=== PATIENT | female | born 1935 | race Hispanic/Latino ===

== ENCOUNTER 2020-12-17 10:46 | Emergency (ER) | payer OTHER ==
--- OUTSIDE RECORDS SUMMARY | 2020-12-17 10:50 | XMS REPORT | Continuity of Care Document ---
:1935 Author Organization [facility] t Address [address] [place] [address] Care Team Providers Name Role Phone Unavailable Unavailable Unavailable Problems This patient has no known problems. Allergies, Adverse Reactions, Alerts Allergy Allergy Status Severity Reaction(s) Onset Inactive Treating Comm ents Source Name Type Date Date Clinician Sulfa Adverse Active hives [facility] Medications Ordered Filled Start Stop Current Ordering Indication Dosage Frequency Signature Comments Components Source Medication Medication Date Date Medication? Clinician (SIG) Name Name Bisi Mathews Yes Jenniffer TAKE [address] [facility] Procedures This patient has no known procedures. Encounters Start End Encounter Admission Attending Care Care Encounter Source Date/Time Date/Time Type Type Clinicians Facility Department ID 2020-11-26 2020-11-26 Outpatient [facility] [id number] [facility] 2020-11-26 2020-11-26 Outpatient [facility] [id number] [facility] 2020-11-05 2020-11-05 [facility] [id number] [facility] 2020-09-06 2020-09-06 Outpatient [facility] [id number] [facility] 2020-09-05 2020-09-05 [facility] [id number] [facility] 2020-07-31 2020-07-31 [facility] [id number] [facility] 2020-03-15 2020-03-15 [facility] [id number] [facility] 2020-02-27 2020-02-27 [facility] [id number] [facility] 2020-01-19 2020-01-19 [facility] [id number] [facility] 14:10[facility]00 14:10:00 [facility] [employer] [facility] 2020-01-19 2020-01-19 [facility] [id number] [facility] 11:49:00 11:49:00 [facility] [employer] [facility] 2019-12-30 2019-12-30 [facility] [id number] 10:00[facility]00 10:00:00 [facility] [employer] [facility] Out[facility] Clin[facility] 2019-11-22 2019-11-22 [facility] [id number] [address] 09:40[facility]00 09:40:00 [facility] [employer] [facility] Medicine l Medicine Outpat[facility] Clinics 2019-09-06 2019-09-06 [facility] [id number] 15:49:00 15:49:00 t [facility] [employer] [facility] Medicine l Medicine Outpati ent Clinics 2019-08-23 2019-08-23 [facility] [id number] 10:20:00 10:20:00 [facility] [employer] [facility] Medicine l Medicine Outpati ent Clinics 2019-07-04 2019-07-04 Outpatient Nesha Orozco [id number] 14:00:00 14:00:00 [facility] ent Clinics 2019-05-24 2019-05-24 Outpatient Nesha Orozco [id number] [facility] 09:40:00 09:40:00 [facility] ent Clinics Results This patient has no known results.
--- NOTE | 2020-12-17 12:13 | RAD REPORT ---
EXAM DESCRIPTION: CT - Head C Spine Mpr Wo Con - 12/17/2020 11:32 am CLINICAL HISTORY: Head and neck injury status post fall. Head and neck pain COMPARISON: [address] TECHNIQUE: Computed axial tomography of the head and cervical spine was obtained. Sagittal and coronal reconstruction was performed. All CT scans are performed using dose optimization technique as appropriate and may include automated exposure control or mA/KV adjustment according to patient size. FINDINGS: Left scalp hematoma. No underlying skull fracture noted. An intracranial bleed is not seen. The ventricles are normal in caliber. An extra-axial fluid collect ion is not noted.Fluid within the visualized sinuses and mastoids is not seen A cervical fracture is not visualized. No dislocation is noted. Loss of the normal lordosis of the ce rvical spine. Slight anterior subluxation C4 on C5 and C5 on C6 IMPRESSION: No acute intracranial abnormality is seen. A cervical fracture is not visualized. If the patient continues to have symptoms to suggest intracra nial /spinal cord pathology then MRI would be recommended
--- NOTE | 2020-12-17 12:17 | RAD REPORT ---
EXAM DESCRIPTION: CTThoracic Spine Wo Cont12/17/2020 11:40 am CLINICAL HISTORY: Back injury with Back pain status post fall COMPARISON: None TECHNIQUE: Computed axial tomography of thoracic spine was obtained with coronal and sagittal recons truction. All CT scans are performed using dose optimization technique as appropriate and may include automated exposure control or mA/KV adjustment according to patient size. FINDINGS: No fracture is seen. No dislocation is noted. No high-grade stenosis IMPRESSION: Negative for a thoracic fracture If the patient has clinical symptoms to suggest spinal cord/spinal canal pathology then MRI would be recommended.
--- NOTE | 2020-12-17 12:20 | RAD REPORT ---
EXAM DESCRIPTION: RAD - Hip Right 2 View - 12/17/2020 12:06 pm CLINICAL HISTORY: Right hip pain FINDINGS: No fracture or dislocation is seen. Bones are osteoporotic. If patient continues have symptoms to suggest an occult fracture then MRI or CT would be recommended
--- NOTE | 2020-12-17 12:20 | RAD REPORT ---
EXAM DESCRIPTION: RAD - Pelvis - 12/17/2020 12:06 pm CLINICAL HISTORY: Pelvic pain status post injury FINDINGS: No fracture or dislocation is seen. Bones are osteoporotic. If the patient continues to have symptoms to suggest an occult fracture then MRI or CT would be recom mended
--- NOTE | 2020-12-17 12:21 | RAD REPORT ---
EXAM DESCRIPTION: RAD - Knee Right 2 View - 12/17/2020 12:06 pm CLINICAL HISTORY: Left knee pain FINDINGS: No fracture or dislocation is seen. Bones are osteoporotic. A small joint effusion If the patient continues have symptoms to suggest an occult fracture, ligamentous or meniscal injury then an MRI would be recommended.
--- NOTE | 2020-12-17 12:22 | RAD REPORT ---
EXAM DESCRIPTION: RAD - Knee Left 2 View - 12/17/2020 12:06 pm CLINICAL HISTORY: Left knee pain status post injury FINDINGS: No fracture or dislocation is seen. Bones are osteoporotic. Chondrocalcinosis is present
--- NOTE | 2020-12-17 12:24 | RAD REPORT ---
EXAM DESCRIPTION: RAD -Hand Left 3 View - 12/17/2020 12:08 pm CLINICAL HISTORY: Left hand pain status post injury FINDINGS: Comminuted moderately displaced spiral fracture fifth metacarpal. No dislocation seen
--- NOTE | 2020-12-17 13:07 | ER ---
Nurse's Notes [facility] Name: Linda Clinton Age: 84 yrs Sex: Female : 1935 Arrival Date: 12/17/2020 Time: 10:50 Bed Treatment Private MD: Diagnosis: Displaced fracture of shaft of fifth metacarpal bone, left hand;Unspecified superficial injury of other part of head, initial encounter;Contusion of left knee;Contusion of right knee Presentation: 12/17 11:17 Chief complaint: Patient states: tripped and fell to ground, hit head on brick column, iw c/o pain to right knee and hip and left hand , no LOC, not on blood thinners besides aspirin. 11:17 Acuity: GURPREET 4 iw - Family history:: not pertinent. - Hospitalizations: : No recent hospitalization is reported. Vital Signs: 11:23 BP 185 / 78; Pulse 82; Resp 18; Temp 97.6(TE); Pulse Ox 95% on R/A; Weight 90.72 kg; mh5 Height 5 ft. 2 in. (157.48 cm); Pain 4/10; 11:23 Body Mass Index 36.58 (90.72 kg, 157.48 cm) mh5 ED Course: 10:50 Patient arrived in ED. ds1 11:09 Miri Agustin, RN is Primary Nurse. iw 11:09 David Copeland MD is Attending Physician. rn 11:18 Triage completed. iw 11:24 Patient has correct armband on for positive identification. Bed in low position. Call mh5 light in reach. Side rails up X2. Adult w/ patient. Warm blanket given. Pillow given. Pulse ox on. NIBP on. 11:32 CT Head C Spine In Process Unspecified. EDMS 11:40 Thoracic Spine Wo Cont In Process Unspecified. EDMS 12:06 XRAY Hand LEFT 3 View In Process Unspecified. EDMS 12:06 XRAY Knee LEFT 2 view In Process Unspecified. EDMS 12:06 XRAY Knee RIGHT 2 view In Process Unspecified. EDMS 12:06 XRAY Hip RIGHT 2 view In Process Unspecified. EDMS 12:06 XRAY Pelvis In Process Unspecified. EDMS 13:06 Cj Baker MD is Referral Physician. rn Administered Medications: No medications were administered Outcome: 13:07 Discharge ordered by MD. pappas 13:45 Patient left the ED. jr8 Signatures: Dispatcher [employer] EDMS Mary Lou Wilkins ds1 Miri Agustin RN RN iw Nieto, Roman, MD MD rn Roszak, Josh, PA PA jr8 Maegan Kirkland mh5
--- NOTE | 2020-12-17 13:08 | EDPHYS ---
Physician Documentation [facility] Name: Linda Clinton Age: 84 yrs Sex: Female : 1935 Arrival Date: 12/17/2020 Time: 10:50 Bed Treatment Private MD: ED Physician David Copeland HPI: 12/17 11:37 This 84 yrs old Female presents to ER via Unassigned with complaints of Fall rn Injury. 11:37 Details of fall: The patient fell from an upright position, while walking. Onset: The rn symptoms/episode began/occurred this morning, at 07:00. Associated injuries: The patient sustained injury to the head, neck injury, Both knees, left hand. Severity of symptoms: At their worst the symptoms were mild, in the emergency department the symptoms are unchanged. The patient has not experienced similar symptoms in the past. The patient has not recently seen a physician. Reports in garden, this morning around 0700, tripped over a water hose, landed on left hand and struck left forehead on brick wall. Not on any blood thinners. No LOC. No vomiting or focal neurological deficit. Reports pain to both knees but ambulatory, does not feel like broke them.. - Family history:: not pertinent. - Hospitalizations: : No recent hospitalization is reported. ROS: 11:37 Constitutional: Negative for fever, chills, and weight loss, Eyes: Negative for injury, rn pain, redness, and discharge, ENT: Negative for injury, pain, and discharge, Neck: Positive for neck pain Cardiovascular: Negative for chest pain, palpitations, and edema, Respiratory: Negative for shortness of breath, cough, wheezing, and pleuritic chest pain, Abdomen/GI: Negative for abdominal pain, nausea, vomiting, diarrhea, and constipation, Back: Negative for injury and pain, : Negative for injury, bleeding, discharge, and swelling, MS/Extremity: Positive for bilateral knee pain, and left hand pain. Skin: Negative for injury, rash, and discoloration, Neuro: Negative for weakness, numbness, tingling, and seizure. 11:37 All other systems are negative. Exam: 11:37 Constitutional: This is a well developed, well nourished patient who is awake, alert, rn and in no acute distress. Head/Face: Normocephalic, 3 cm abrasion and superficial hematoma left forehead along hairline. No laceration or depression. Eyes: Pupils equal round and reactive to light, extra-ocular motions intact. Lids and lashes normal. Conjunctiva and sclera are non-icteric and not injected. Cornea within normal limits. Periorbital areas with no swelling, redness, or edema. Neck: No cervical midline tenderness or step-off. Chest/axilla: Normal chest wall appearance and motion. Nontender with no deformity. No lesions are appreciated. No crepitus Cardiovascular: Regular rate and rhythm. No pulse deficits. Respiratory: No increased work of breathing, no retractions or nasal flaring. Abdomen/GI: Soft, non-tender Back: No spinal tenderness. No costovertebral tenderness. Full range of motion. Skin: Warm, dry MS/ Extremity: Pulses equal, no cyanosis. Neurovascular intact. Full, normal range of motion. Equal circumference. Full range of motion bilateral knees with small ecchymosis right prepatellar region. No gross deformity. Left hand with tenderness along the fifth metacarpal with very mild scissoring evident when making a fist. Neuro: Awake and alert, GCS 15, oriented to person, place, time, and situation. Cranial nerves II-XII grossly intact. Motor strength 5/5 in all extremities. Sensory grossly intact. Cerebellar exam normal. Vital Signs: 11:23 BP 185 / 78; Pulse 82; Resp 18; Temp 97.6(TE); Pulse Ox 95% on R/A; Weight 90.72 kg; mh5 Height 5 ft. 2 in. (157.48 cm); Pain 4/10; 11:23 Body Mass Index 36.58 (90.72 kg, 157.48 cm) 5 Procedures: 13:03 Splinting: Splint applied to left hand. Reduction: of the 5th MC of left hand, using rn traction, manipulation, Immobilized with ulnar gutter splint. Patient tolerated well. Decreased scissoring after reduction. 13:03 Splinting: using Orthoglass ulnar gutter splint. applied by myself. Examined by , rn post splint application: neurovascular intact, 2+ distal pulses palpable, brisk capillary refill noted, Patient tolerated well. MDM: 11:09 Patient medically screened. rn 13:05 Differential diagnosis: abrasion, closed head injury, contusion, fracture, sprain, rn strain. Data reviewed: vital signs, nurses notes, radiologic studies, CT scan, plain films, and as a result, I will discharge patient. Counseling: I had a detailed discussion with the patient and/or guardian regarding: the historical points, exam findings, and any diagnostic results supporting the discharge/admit diagnosis, radiology results, the need for outpatient follow up, to return to the emergency department if symptoms worsen or persist or if there are any questions or concerns that arise at home. Response to treatment: the patient's symptoms have mildly improved after treatment, and as a result, I will discharge patient. Special discussion: I discussed with the patient/guardian in detail that at this point there is no indication for admission to the hospital. It is understood, however, that if the symptoms persist or worsen the patient needs to return immediately for re-evaluation. Based on the history and exam findings, there is no indication for further emergent testing or inpatient evaluation. I discussed with the patient/guardian the need to see the hand specialist for further evaluation of the symptoms. ED course: CT head/C-spine/T-spine negative for acute abnormality. X-ray pelvis/right knee/left knee/right hip negative. Positive spiral fracture left fifth MC. Now reduced and splinted with improvement. Tetanus updated. Will DC home with hand follow-up given high likelihood of need of surgery. 12/17 11:17 Order name: CT Head C Spine; Complete Time: 12:24 rn 12/17 11:17 Order name: XRAY Hand LEFT 3 View; Complete Time: 12:30 rn 12/17 11:17 Order name: XRAY Knee LEFT 2 view; Complete Time: 12:24 rn 12/17 11:17 Order name: XRAY Knee RIGHT 2 view; Complete Time: 12:24 rn 12/17 11:17 Order name: XRAY Hip RIGHT 2 view; Complete Time: 12:24 rn 12/17 11:17 Order name: XRAY Pelvis; Complete Time: 12:24 rn 12/17 11:37 Order name: Thoracic Spine Wo Cont; Complete Time: 12:24 EDMS 12/17 12:30 Order name: Splint rn 12/17 13:17 Order name: Sling rn Administered Medications: No medications were administered Disposition Summary: 12/17/20 13:07 Discharge Ordered Location: Home rn Problem: new rn Symptoms: have improved rn Condition: Stable rn Diagnosis - Displaced fracture of shaft of fifth metacarpal bone, left hand rn - Unspecified superficial injury of other part of head, initial encounter rn - Contusion of left knee rn - Contusion of right knee rn Followup: rn - With: jC Baker MD - When: 5 - 6 days - Reason: Recheck today's complaints, Re-evaluation by your physician Discharge Instructions: - Discharge Summary Sheet rn - Cast or Splint Care, Adult rn - Metacarpal Fracture rn - Head Injury, Adult rn - Closed Reduction for Metacarpal Dislocation, Care After rn Forms: - Medication Reconciliation Form rn - Thank You Letter rn - Antibiotic scrap burner - Prescription Opioid Use rn Signatures: Dispatcher [employer] EDDavid Sam MD MD rn
[2020-12-17] MEDS ORDERED: TETANUS & DIPHTHERIA TOX,ADULT 0.5 ML VIAL ONE (13:54)
[2020-12-17 13:59] VITALS: BP 185/78; TEMP 97.6; O2SAT 95
== END 2020-12-17 13:45 | disposition home or self-care (01) ==
LOC: ER 10:46
PROC: 0PSQXZZ Reposition Left Metacarpal, External Approach (ICD-10-PCS; principal; 2020-12-17)
DX: S62.327A Displaced fracture of shaft of fifth metacarpal bone, left hand, initial encounter for closed fracture (principal); S00.80XA Unspecified superficial injury of other part of head, initial encounter; S80.02XA Contusion of left knee, initial encounter; S80.01XA Contusion of right knee, initial encounter; W01.198A Fall on same level from slipping, tripping and stumbling with subsequent striking against other object, initial encounter; Y92.89 Other specified places as the place of occurrence of the external cause; Z23 Encounter for immunization
CPT/HCPCS: 70450; 72125; 72170; 90714; 99283

== ENCOUNTER 2020-12-20 11:56 | Day surgery (SDC) | payer OTHER ==
[2020-12-20 11:50] LABS: Urine Appearance CLEAR (Clear); Urine Bilirubin NEGATIVE (Negative); Urine Blood NEGATIVE (Negative); Urine Color YELLOW (Yellow); Urine Glucose 3+ (Negative); Urine Protein 3+ (Negative); Urine Specific Gravity 1.025 (1.005-1.030); Urine Urobilinogen 0.2 mg/dL (0.2-1.0); Urine pH 5.5 (5.0-7.0)
--- NOTE | 2020-12-20 11:53 | RAD REPORT ---
EXAM DESCRIPTION: RAD - Chest Pa And Lat (2 Views) - 12/20/2020 11:45 am CLINICAL HISTORY: preop COMPARISON: CHEST SINGLE VIEW dated 04/01/2013; CHEST SINGLE VIEW dated 01/22/2012 FINDINGS: No evidence of edema or pneumonia. The heart size is within normal limits.No acute osseous abnormality. No significant pleural effusions or pneumothorax. IMPRESSION: No acute cardiopulmonary disease.
[2020-12-20 12:07] LABS: Absolute Lymphocytes (CBC) 1.3 K/uL (0.7-4.9); Basophils % 0.2 % (0-1.3); Hematocrit 31.9 % (36.0-45.0); Lymphocytes % 24.5 % (15.3-44.8); RBC Red Blood Cell Count 3.95 M/uL (3.86-4.86)
[2020-12-20 12:11] LABS: Protime INR 1.11
[2020-12-20 12:15] LABS: Urine Microscopic Reflex ORDER UMIC
[2020-12-20] MEDS ORDERED: MIDAZOLAM HCL 2 MG/2 ML INJ ONE (12:28)
[2020-12-20] MEDS ORDERED: propofoL 200 MG/20 ML VIAL IV ONE (12:28)
[2020-12-20] MEDS ORDERED: FENTANYL CITR 100 MCG/2 ML ONE (12:28)
[2020-12-20] MEDS ORDERED: LIDOCAINE 2% MPF 5 ML VIAL ONE (12:28)
[2020-12-20] MEDS ORDERED: ONDANSETRON 4 MG/2 ML VIAL ONE (12:29)
[2020-12-20 12:34] LABS: Urine Bacteria NONE SEEN /HPF (<20); Urine RBC <5 /HPF (NONE SEEN)
[2020-12-20] MEDS ORDERED: CEFAZOLIN/SWI 1gm 1 GM/10 ML SYR ONE (12:34)
[2020-12-20] MEDS ORDERED: NA CHLORIDE 0.9% 1,000 ML ONE (12:34)
[2020-12-20] MEDS ORDERED: ROPLVACAINE HCL 20 ML ONE ×2 (12:45→12:49)
[2020-12-20] MEDS ORDERED: dexAMETHasone 10 MG/ML VIAL ONE (12:45)
[2020-12-20] MEDS ORDERED: LIDOCAINE 1% MPF 5 ML VIAL ONE ×2 (13:06→13:07)
[2020-12-20] MEDS ORDERED: NS 0.9% VIAL 10 ML ONE (13:06)
--- NOTE | 2020-12-20 14:22 | RAD REPORT ---
EXAM DESCRIPTION: RAD - Fluoroscopy <1 Hour - 12/20/2020 2:03 pm FINDINGS: Two portable C-arm views were obtained during fluoroscopic assisted placement of left fift h metacarpal fracture fixation hardware. No suspicious or unexpected findings. Fluoro time was less t romero 0.1 minutes. Cumulative dose was 0.0222 mGy.
[2020-12-20] MEDS ORDERED: CODEINE 30MG/APAP 300MG TAB ONE (15:46)
--- NOTE | 2020-12-20 15:58 | OP ---
Surgeon: Cj Baker MD Preoperative Diagnosis: fracture, left ring finger metacarpal. Postoperative Diagnosis: fracture, left ring finger metacarpal. Procedure Performed: Open reduction and internal fixation with plate and screws splint. Anesthesia: General. Prcocedure In Detail: After satisfactory induction of general anesthesia, left arm was prepped with Betadine scrub, Betadine paint, dry sterile drapes were applied. The arm was elevated, exsanguinated with an Esmarch, tourniquet inflated to 250 mmHg. Hand was placed on a Roto Lock table. A curvilin ear incision was made over the fifth metacarpal, then dissected down to the extensor mechanism, was r etracted. Periosteum opened with scalpel, periosteal elevator were used. The patient had a transverse fracture with a butterfly fragment only and then a 7-hole plate placed. Drill holes were made with 1.0 drill and then screws were placed 1.3. After this was done, C-arm revealed adequate reduction and 4 screw s were placed. Tourniquet released. Electrocautery was used for hemostasis. Closed with 6-0 Vicryl and then skin closed with 4-0 Prolene vertical mattress. Dressed with Xerofor m, 2 inch [place], Kerlix, and a splint holding wrist 10 degrees dorsiflexion and MCP at 90. The patient tolerated the procedure well and re turned to recovery. EUGENIO/MAYNOR Voice ID: [id number] Report ID: [id number]
[2020-12-20 16:16] VITALS: BP 167/72; TEMP 97; O2SAT 96
== END 2020-12-20 16:05 | disposition home or self-care (01) ==
LOC: OR 11:56
PROVIDERS: ATTEND Specialist
PROC: 0PSQ04Z Reposition Left Metacarpal with Internal Fixation Device, Open Approach (ICD-10-PCS; principal; 2020-12-20 13:00)
DX: S62.307A Unspecified fracture of fifth metacarpal bone, left hand, initial encounter for closed fracture (principal); Z20.822 Contact with and (suspected) exposure to COVID-19
CPT/HCPCS: 93005; 85025; 80048; 36415; 85610; 82947; 85730; 71046; 26615; U0003; J2704; J2250; J3010; J1100; J2795 ×2; J0690; J7030; J2405; 76000; 81003; 81015